=== PATIENT | male | born 1965 | race Caucasian/White ===

== ENCOUNTER 2023-12-18 06:00 | Emergency (ER) | payer BC, SELFPAY ==
[2023-12-18 06:11] VITALS: BP 172/107; PULSE 96; RESP 18; TEMP 36.6; O2SAT 100; BMI 28.5
[2023-12-18 06:12] VITALS: BP 171/100; BP 172/107; PULSE 95; RESP 16; O2SAT 98
--- NOTE | 2023-12-18 07:23 | ED_ITS ---
HPI - Skin/Abscess/Foreign Bdy General Chief complaint: Skin/Abscess/Foreign Body Stated complaint: poison oak exposure around eyes Time Seen by Provider: 12/18/23 06:33 Source: patient, family and RN notes reviewed Mode of arrival: ambulatory Limitations: no limitations History of Present Illness ED Provider: Georgia Purvis PA-C HPI narrative: This is a 58-year-old male, with a history of type 2 diabetes, who presents emergency department with complaints of itchy and burning rash to face, forearms, groin x 2 days. Patient reports that he was outdoors and believes he exposed himself to poison oak. He states that since this exposure, he has had a rash around his face, bilateral arms, groin, and rectal area. He denies any fevers or chills. No difficulty swallowing or breathing. No chest pain or shortness of breath. He denies any changes in his vision. No other complaints or concerns at this time. MD complaint: rash Onset (ago): day(s) Tetanus up to date: no Location: head and face Severity: moderate Quality: burning and pruritic Pain Consistency: constant Relieving factors: none Exacerbating factors: none Context: none Associated symptoms: denies other symptoms Treatments prior to arrival: none Related Data Previous Rx's ?Medication ?Instructions ?Recorded diphenhydramine HCl 25 mg tablet 25 - 50 mg (1 - 2 x 25 mg) PO 12/18/23 (Benadryl Allergy) Q6-8H PRN allergic reaction #14 tabs hydrocortisone 1 % topical 1 appl topical DAILY PRN itching 12/18/23 ointment (Anti-Itch #28.35 grams (hydrocortisone)) prednisone 20 mg tablet 40 mg (2 x 20 mg) PO DAILY 4 days 12/18/23 #8 tabs Allergies Allergy/AdvReac Type Severity Reaction Status Date / Time No Known Allergies Allergy Verified 12/18/23 06:16 Review of Systems 2 Review of Systems: Yes all other systems are reviewed and are negative Constitutional: Constitutional: Reports as per [facility] Past Medical History Attestation statement: The following information was validated with the patient. Social History Social History Smoked in Last 30 Days: Yes Use of substances other than those prescribed or required for medical reasons: Yes Substance Use Type: Marijuana Substance Use Frequency: Occasionally Advance Directives: No Advance Directives Information Provided: Yes Do you have a plan to hurt others: No Plan Physical Exam Vital Signs: Vital Signs: Last Vital Signs Temp 98.9 F 12/18/23 08:03 Pulse 82 12/18/23 08:03 Resp 18 12/18/23 08:03 BP 170/98 H 12/18/23 08:03 Pulse Ox 98 12/18/23 08:03 O2 Del Method Room Air 12/18/23 08:03 BMI result Body Mass Index 28.5 Const: General: cooperative, comfortable and no acute distress Orientation/consciousness: patient oriented x3 Limitations: no limitations HEENT: Head: Yes normal to inspection, Yes normocephalic and Yes atraumatic Ears: hearing grossly normal bilaterally General nose exam: Normal external nose present Face and sinus: Yes normal facial exam Mouth: Normal oral and palatal mucosa present, oropharynx normal and moist mucous membranes Throat: Yes posterior oropharynx normal Eyes: Other: BL eyelid edema, no erythema General: appearance normal, both eyes and all related structures Eyelids: Yes eyelids normal Conjunctivae: conjunctivae normal Sclerae: sclerae normal Pupils: Equal, round and reactive pupils present EOM: EOMs intact bilaterally Neck: Neck: Yes normal visual inspection, Yes full ROM and Yes no lymphadenopathy Lymphatic: no lymphadenopathy noted Chest: Chest palpation & inspection: normal inspection of the chest Resp: Effort & Inspection: normal respiratory effort and able to speak in complete sentences Auscultation: clear to auscultation bilaterally, no crackles, no rales, no rhonchi and no wheezes Cardio: Rate: regular rate Rhythm: regular rhythm Heart sounds: S1 normal heart sound present and S2 normal heart sound present GI: Inspection: Yes normal to inspection Skin: Other: macular papular rash noted to the flexor surfaces of bilateral upper arms with excoriations, no surrounding erythema or warmth. Bullae noted to left fourth digit, no surrounding erythema or warmth. macular papular rash noted to scrotum, nontender, no drainage or warmth. gluteal cleft with macular papular rash noted, no drainage, no surrounding erythema, does not extend into the perineum or rectum. examination performed with ED management services technician, Asa, present during entirity of examination. Neuro: General: patient oriented x3 and moves all extremities Cranial nerves: Yes Equal, round and reactive pupils present Extrem: General: Yes normal to inspection Right upper extremity: normal to inspection Left upper extremity: normal to inspection Right lower extremity: normal to inspection Left lower extremity: normal to inspection Medications Administered Discontinued Medications Generic Name Dose Route Start Last Admin Trade Name Jose PRN Reason Stop Dose Admin Calamine 1 appl 12/18/23 07:40 12/18/23 08:01 Calamine/Zinc Oxide Lotion 177 Ml Bottle TOPICAL 12/18/23 07:41 1 appl ONCE ONE Administration Protocol Diphenhydramine HCl 50 mg 12/18/23 07:40 12/18/23 07:59 Diphenhydramine Hcl 25 Mg Capsule PO 12/18/23 07:41 50 mg ONCE ONE Administration Prednisone 40 mg 12/18/23 07:40 12/18/23 08:00 Prednisone 20 Mg Tablet PO 12/18/23 07:41 40 mg ONCE ONE Administration Medical Decision Making Medical Decision Making [facility] Narrative: This is a 58-year-old male who presents emergency department with complaints of itchy rash noted to face, forearms, groin. On arrival, he is nontoxic appearing, blood pressure elevated at 172/107, all other vital signs within normal limits. He has no dizziness, headache, chest pain or shortness of breath. Physical examination consistent with contact dermatitis secondary to poison oak exposure. Will treat with Benadryl, prednisone, and calamine/hydrocortisone cream. Discussed strict return precautions. Also advised that prednisone can cause increase in blood glucose level, he understands. Patient stable for discharge, given 1st dose of prednisone, Benadryl, calamine in the department today. Patient stable for discharge. Differential Diagnosis Differential Diagnoses: The differential diagnosis associated with the presentation includes Contact dermatitis, cellulitis, atopic dermatitis Lab Data [facility] Lab Attestation statement: I reviewed the patient's lab results. Hyperglycemia at 168 - he has a history of diabetes Labs: Lab Results 12/18/23 Range/Units 07:25 POC Glucose 168 H (60-115) mg/dL Independent Historian Clinical information obtained from an independent historian. History obtained from or confirmed by: Spouse Chronic Conditions Patient?s care impacted by: Diabetes Discharge Plan Discharge Clinical Impression: Contact dermatitis Patient Disposition: Home, Self-Care Instructions: Contact Dermatitis (ED) Additional Instructions: You were seen in the emergency department due to a rash. You likely have contact dermatitis secondary to poison oak exposure. I am prescribing you a short course of prednisone. Please finish the entire course. We gave you your 1st dose in the department today. Monitor your sugars as prednisone can increase your blood glucose level. You may take Benadryl as needed for itchiness. Please be advised that this can cause drowsiness, do not drink alcohol or drive while taking this medication. You may apply topical cortisone cream to the rashes for relief. You may also use calamine lotion as well. Keep close eye on these areas, please return if any increased redness, swelling, fevers, chills, changes in vision, difficulty swallowing or breathing occur. Follow-up with your primary care physician. Prescriptions: New hydrocortisone [Anti-Itch (HC)] 1 % ointment 1 appl topical DAILY PRN (Reason: itching) Qty: 28.35 0RF diphenhydramine HCl [Benadryl Allergy] 25 mg tablet 25 - 50 mg PO Q6-8H PRN (Reason: allergic reaction) Qty: 14 0RF prednisone 20 mg tablet 40 mg PO DAILY 4 Days Qty: 8 0RF Interventions: ED Discharge Assessment Last Done: 12/18/23 08:03 Discharge Date/Time: 12/18/23 08:04 Print Language: [place]
[2023-12-18 07:40] LABS: Glucose, Whole Blood 168 mg/dL (60-115)
[2023-12-18] MEDS: diphenhydrAMINE HCL 25 MG CAPSULE 50 MG PO (07:59)
[2023-12-18] MEDS: predniSONE 20 MG TABLET 40 MG PO (08:00)
[2023-12-18] MEDS: Calamine/Zinc Oxide LOTION 177 ML BOTTLE 1 APPL TOPICAL (08:01)
[2023-12-18 08:03] VITALS: BP 170/98; PULSE 82; RESP 18; TEMP 37.2; O2SAT 98
== END 2023-12-18 08:04 | disposition home or self-care (01) ==
PROVIDERS: Emergency Provider Student in an Organized Health Care Education/Training Program; PCP Family Medicine
DX: R07.89 Other chest pain (principal); R53.83 Other fatigue
CPT/HCPCS: 82947; 99283; 99284